=== PATIENT | female | born 1970 | race African-American/Black ===

== ENCOUNTER 2019-05-18 12:37 | Inpatient (IN) | payer MEDICAID, OTHER ==
[~2019-05-18] VITALS: Ht 147.3 cm; Wt 69.0 kg
[2019-05-18] MEDS ORDERED: MORPHINE SULFATE 4 MG/ML CPJ (NOT FOR IM USE) IV STA (13:39)
[2019-05-18] MEDS ORDERED: ONDANSETRON HCL 4MG/2ML INJ IV STA (13:39)
[2019-05-18 14:53] LABS: BASOPHILS % 0.7 % (0.0-2.0); EOSINOPHILS % 0.2 % (0.0-5.0); HEMATOCRIT. 37.5 % (36.0-48.0); HEMOGLOBIN. 12.7 g/dL (12.0-16.0); LYMPHOCYTES % 9.4 % (20.0-50.0); MEAN CORPUSCULAR HEMOGLOBIN 29.6 pg (28.0-32.0); MEAN CORPUSCULAR VOLUME 87.6 fL (81.0-99.0); MEAN PLATELET VOLUME 9.6 fl (7.4-10.4); NEUTROPHILS % 85.7 % (40.0-76.0); PLATELET 199 x1000/uL (130-400); RED BLOOD CELL COUNT 4.29 mill/uL (4.2-5.4); RED CELL DISTRIBUTION WIDTH 13.7 % (11.6-14.6)
[2019-05-18 15:01] LABS: INR 0.9; PROTHROMBIN TIME 9.6 sec (9.6-11.0)
[2019-05-18 15:02] LABS: CHLORIDE 111 mEq/L (98-107)
[2019-05-18] MEDS ORDERED: SODIUM CHLORIDE 0.9% 1,000 ML IV ONE (17:00)
[2019-05-18 17:43] LABS: CLARITY URINE CLOUDY (CLEAR); KETONES URINE NEGATIVE (NEGATIVE); LEUKOCYTE ESTERASE URINE NEGATIVE (NEGATIVE); NITRITE URINE NEGATIVE (NEGATIVE); OCCULT BLOOD URINE 3+ (NEGATIVE); PROTEIN URINE 2+ (NEGATIVE); SPECIFIC GRAVITY URINE 1.012 (1.005-1.030); UROBILINOGEN URINE 0.2 E.U./dL (0.2-1.0)
[2019-05-18 17:44] LABS: COLOR URINE BLOODY (YELLOW)
[2019-05-18] MEDS ORDERED: HYDRALAZINE 20MG/ML VIAL IV ONE (18:00)
[2019-05-18 20:15] VITALS: BP 189/88
[2019-05-18 20:50] VITALS: BP 189/88
[2019-05-18] MEDS ORDERED: IPRATROPIUM/ALBUTEROL 0.5-3(2.5)MG/3ML NEB HHN PRN (22:15)
[2019-05-18] MEDS ORDERED: HYDROCODONE/ACETAMINOPHEN 5/325MG TABLET PO PRN (22:15)
[2019-05-18] MEDS ORDERED: ACETAMINOPHEN 325MG TABLET PO PRN (22:15)
[2019-05-18] MEDS ORDERED: ONDANSETRON HCL 4MG/2ML INJ IV PRN (22:15)
[2019-05-18] MEDS ORDERED: CLONIDINE 0.1MG TABLET PO PRN (22:15)
[2019-05-19] VITALS: BP 158/87
[2019-05-19] MEDS ORDERED: LOSA50TA41 PO (00:09)
[2019-05-19] MEDS ORDERED: METO-385 PO (00:09)
[2019-05-19] MEDS ORDERED: CLON-457 PO (00:09)
[2019-05-19] MEDS ORDERED: AMLO10TA80 PO (00:09)
[2019-05-19] MEDS ORDERED: ASPI-1393 PO (00:09)
[2019-05-19] MEDS ORDERED: ATOR80TA PO (00:09)
[2019-05-19] MEDS ORDERED: MINO2.5T2 PO (00:09)
[2019-05-19 04:00] VITALS: BP_SYST 109; BP_SYST 180; BP_DIAS 51; BP_DIAS 78
[2019-05-19 07:24] LABS: BASOPHILS % 0.5 % (0.0-2.0); EOSINOPHILS % 1.4 % (0.0-5.0); HEMATOCRIT. 34.2 % (36.0-48.0); HEMOGLOBIN. 11.5 g/dL (12.0-16.0); LYMPHOCYTES % 16.2 % (20.0-50.0); MEAN CORPUSCULAR HEMOGLOBIN 29.3 pg (28.0-32.0); MEAN CORPUSCULAR VOLUME 87.4 fL (81.0-99.0); MEAN PLATELET VOLUME 9.6 fl (7.4-10.4); MONOCYTES % 8.3 % (2.0-8.0); NEUTROPHILS % 73.6 % (40.0-76.0); PLATELET 186 x1000/uL (130-400); RED BLOOD CELL COUNT 3.92 mill/uL (4.2-5.4); RED CELL DISTRIBUTION WIDTH 13.5 % (11.6-14.6)
[2019-05-19 07:27] LABS: CHLORIDE 112 mEq/L (98-107)
[2019-05-19 07:47] LABS: HDL CHOLESTEROL 52 mg/dL (40-59); T4 FREE 1.12 ng/dL (0.76-1.46)
[2019-05-19 07:48] LABS: LDL CHOLESTEROL 87 mg/dL (5-100)
[2019-05-19 08:00] VITALS: BP 177/91
[2019-05-19] MEDS ORDERED: INFLUENZA VIRUS VACCINE(AFLURIA) 0.5ML SYR IM ONE (10:00)
[2019-05-19] MEDS ORDERED: AMLODIPINE 10MG TABLET PO SCH (11:45)
[2019-05-19] MEDS ORDERED: LOSARTAN POTASSIUM 50 MG TABLET PO SCH (11:45)
[2019-05-19 14:41] VITALS: BP 162/87
== END 2019-05-19 17:31 | disposition home or self-care (01) | DRG 52 ==
LOC: ER 12:37 → 8WST 17:40 → ENRESERV 19:43
PROVIDERS: ADMIT Internal Medicine; ATTEND Internal Medicine
DX: G93.41 Metabolic encephalopathy (principal); F32.9 Major depressive disorder, single episode, unspecified; I12.9 Hypertensive chronic kidney disease with stage 1 through stage 4 chronic kidney disease, or unspecified chronic kidney disease; N18.9 Chronic kidney disease, unspecified; Z86.73 Personal history of transient ischemic attack (TIA), and cerebral infarction without residual deficits; Z98.891 History of uterine scar from previous surgery
CPT/HCPCS: 36415; 70551; 71045; 80061; 81003; 84439; 84443; 84484; 90686; 93005; 96374; 99285; J0360; J2270; J2405; J7030